=== PATIENT | female | born 1980 ===

== ENCOUNTER → 2019-09-04 | Outpatient (CLI) | payer OTHER ==
[~2019-09-04] VITALS: Ht 165.1 cm; Wt 62.1 kg
[~2019-09-04] MED LIST: LEXAPRO20 MG PO; MOBIC15 MG PO; SPIRONOLACTONE25 MG PO; VITAMIN B12-FO1 EAC1 PO; VITAMIN D310 MC1 PO
[2019-09-04 09:24] VITALS: BP 109/72
--- NOTE | 2019-09-04 09:48 | NUR ---
Pain Clinic Assessment: 1. History of Osteoarthritis: Not Applicable History of Rheumatoid Arthritis: Not Applicable 2. Height: 5 ft. 5 in. 165.1 cm. Weight: 137.0 lb. oz. 62.143 kg. Patient's BMI: 22.8 3. Vital Signs: BP: 109/72 Pulse: 63 Resp: 14 Temp: 02 Sat: 100 ECG Mon: 4. Pain Intensity: 3 5. Fall Risk: Dizziness: N Needs help standing or walking: N Fallen in the last 3 months: N Fall risk comments: 6. Patient on Blood Thinner: None 7. History of Hypertension: N 8. Opioid Therapy greater than 6 weeks: N Opiate Contract Signed: 9. Risk Assessment Tool Provided: 2-LOW RISK 10. Functional Assessment Tool: 11. Recreational Drug Use: Never Drug Type: Tobacco Use: Never Smoker Tobacco Type: Amount or Packs/day: How Many Years: Alcohol Use: Yes Frequency: Weekly Quant:
--- NOTE | 2019-09-11 08:34 | HPC ---
[facility] [address] [place] [address] PAIN MANAGEMENT CONSULTATION Name: JENNIFFER REYNAGA Room #: REG SHEILA Anel#: [id number] Admission: 09/04/19 Attend Phys: Benny Serrano MD Discharge: Date of : 76 Report #: [id number] THIS REPORT FOR: //name// CC: Benny Herron DATE OF SERVICE: 09/04/2019 CHIEF COMPLAINT: Back pain and piriformis muscle pain. HISTORY: The patient is a 39-year-old female who has been referred to the pain clinic because of pain and discomfort involving her low back and piriformis muscle. She feels that she has been experiencing piriformis muscle pain and discomfort since 04/2019. She is very active. She does stretching, running, yoga, and has noticed pain in her low back area with pain that radiates down into the right leg and calf. Describes it as aching, cramping, tingling with numbness. Rates as a 3/10 today. She has tried nonsteroidal anti-inflammatory medications. They provide some benefit, but not long-term. She has tried massage. She has tried taking time off from her activities for a month. At this juncture, she feels that conservative treatment has not worked. She would like to consider an injection in the area of the piriformis muscle with the hopes of increasing her pain relief. ALLERGIES: No known drug allergies. CURRENT MEDICATIONS: Vitamin B12, folic acid, vitamin D3 1000 mcg daily, spironolactone 75 mg, and Lexapro 20 mg. PAST MEDICAL HISTORY: Generally good health. PAST SURGICAL HISTORY: None. 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 She is not working at this juncture. REVIEW OF SYSTEMS: Generally good health. LABORATORY DATA: No laboratory values are available at the time of our interview. PAIN CLINIC ASSESSMENT AND PQRS: 1. The patient is not being treated for osteoarthritis. She is not being treated for rheumatoid arthritis. 2. Height 5 feet 5 inches, weight 137 pounds, BMI is 22.8. 3. Vital signs: Blood pressure 109/72, pulse 63, respiratory rate 14, room air saturation is 100%. [facility] [address] [place] [address] PAIN MANAGEMENT CONSULTATION Name: JENNIFFER REYNAGA Room #: REG [facility]#: [id number] Admission: 09/04/19 Attend Phys: Benny Serrano MD Discharge: Date of : 76 Report #: [id number] 4. Pain intensity 10/21. 5. Fall history: The patient has not fallen in the last 3 months. 6. Blood thinner. The patient is not on a blood thinning medication. 7. Hypertension. The patient is not being treated for hypertension. 8. Opioids greater than 6 weeks. The patient is not on opioid medication. 9. Risk assessment tool, low for opioid risk. 10. Functional assessment tool, . 11. Recreational drug use: The patient denies. 12. Tobacco: The patient has never smoked. 13. Alcohol: The patient occasionally drinks alcoholic beverages. PHYSICAL EXAMINATION: GENERAL: The patient is a well-developed, well-nourished white female. Appears her stated age. She is alert and oriented x 3. Her affect is appropriate. Speech is fluent. HEENT: Normocephalic, atraumatic. Extraocular eye muscles intact. Sclerae nonicteric. Mucous membranes moist. NECK: Without adenopathy or JVD. HEART: Regular rate. LUNGS: Clear to auscultation without rhonchi or rales. ABDOMEN: Nontender. MUSCULOSKELETAL: Upper extremity muscle strength judged to be 5/5 for the major muscle groups in the upper extremity. Deep tendon reflexes are +2 at the biceps bilaterally. Without significant scoliosis, kyphosis, or lordosis. The patient is complaining of pain and discomfort in the right buttocks area with pain that radiates down into the area of the calf. Deep tendon reflexes are 1 at the knees bilaterally and difficult to appreciate at the ankles. Anterior and posterior spring tests are negative. Desmond sign is negative. Palpation in the right posterior area near the sciatic outflow tract is tender. The patient does note some pain that radiates in the area of the right sciatic outflow tract. Internal rotation of her foot causes some increased pain in the area of the piriformis. Palpation in the area of the piriformis muscle does recreate and exacerbate the patient's discomfort. IMPRESSION: Right piriformis muscle irritation with some irritation in the area of the sciatic outflow tract and down into the posterior portion of the leg in the SI joint, in the L5-S1 area. RECOMMENDATIONS: We discussed treatment options with the patient. We discussed the possibility of a conservative approach using a Medrol Dosepak. The patient declined it at this juncture. We will try nonsteroidal anti-inflammatory medication, Mobic. The patient will take one tablet per day. If her pain continues to be problematic, she will return to the Pain Clinic, at which time she will then undergo a piriformis muscle injection. Possible complication of the procedure were discussed. We will review those with the patient again when [address] [address] PAIN MANAGEMENT CONSULTATION Name: JENNIFFER REYNAGA Room #: REG SHEILA Tam#: [id number] Admission: 09/04/19 Attend Phys: Benny Serrano MD Discharge: Date of : 76 Report #: [id number] she returns. We will contact her insurance carrier. 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 She states that this has been going on for about 5-6 months and would like to try the more definitive treatment at this juncture. We would like to thank you for letting us participate in her care. We hope she continues to improve. <ELECTRONICALLY SIGNED> By: Benny Serrano MD 09/11/19 [id number] Benny Serrano MD /nt
== END ==
LOC: PAIN 06:49
DX: M54.5 Low back pain (principal)